=== PATIENT | female | born 1960 | race African-American/Black ===

== ENCOUNTER 2018-10-21 10:14 | Emergency (ER) | payer MEDICARE, MEDICAID ==
[~2018-10-21] VITALS: Ht 160 cm; Wt 55.0 kg
[2018-10-21 14:30] VITALS: BP 138/72
== END 2018-10-21 16:05 | disposition home or self-care (01) ==
LOC: ER 10:14
DX: M79.605 Pain in left leg (principal); M79.604 Pain in right leg; S09.8XXA Other specified injuries of head, initial encounter; W01.0XXA Fall on same level from slipping, tripping and stumbling without subsequent striking against object, initial encounter; Y04.8XXA Assault by other bodily force, initial encounter; Y93.89 Activity, other specified; Y92.89 Other specified places as the place of occurrence of the external cause; F14.10 Cocaine abuse, uncomplicated
CPT/HCPCS: 99284